=== PATIENT | female | born 2000 | race Caucasian/White ===

== ENCOUNTER 2025-01-04 21:57 | Emergency (ER) | payer BC, SELFPAY ==
[2025-01-04 21:58] VITALS: BP 131/72
--- NOTE | 2025-01-05 01:08 | ED.GENMED ---
History of Present Illness
General
Chief Complaint: Skin Problem
Source: patient
Exam Limitations: none
Time Seen by Provider: 01/05/25 01:07
Nursing documentation reviewed up to this point in time: agreed with
History of Present Illness
History of Present Illness:
Note:
CHIEF COMPLAINT(S)
Lip swelling and pain near lower lip piercing.
HISTORY OF PRESENT ILLNESS
The patient is a 24-year-old female who presents with swelling and pain associated with her lower lip piercing. She reported that a few days ago, the piercing site started to form something unusual, described as crusting. The piercing in question
was placed approximately six months ago and has been problematic over the past few days, with the main issue being that the ball of the piercing became unscrewed, causing the piercing to embed and the lip to swell. The patient mentioned needing to
push it out each morning due to it getting stuck under the skin. She denied fever or difficulty swallowing. The right side is particularly affected, with noted pain upon touch. The patient has been using a saline solution purchased from a shop to
clean the area. There were no changes made to the jewelry regularly and no reported drainage apart from possible over cleansing noted by the patient. She has an additional piercing on the left side of her vanda that patient is requesting to be removed
out of ear that it will become embedded like the previous site did.
PHYSICAL EXAM
General: Patient is well appearing and in no acute distress; non-toxic
Skin: Warm and dry, mild erythema on the skin below the right lower lip, on the inner mucosal surface there is noted to be presence of scar tissue and some crusting at the site with minimal purulent drainage. Mild mobility of the piercing jewelry;
however, the ball remained unscrewed.
Mouth: Dentition intact. No intra-oral lacerations; skin exam above.
Head: Normocephalic, atraumatic
Eyes: Sclera non-icteric. EOMs intact.
Cardiac: Regular rate and rhythm, no murmurs
Pulm: Normal respiratory effort, no wheezes, rales, or rhonchi
Neuro: CN II-XII intact, no focal neurologic deficits. Sensation intact.
Psychiatric: Appropriate mood and affect.
Nursing notes reviewed and vital signs reviewed.
DIFFERENTIAL DIAGNOSIS
The Differential Diagnosis includes, in no particular order and is not limited to:
1. Localized infection around the piercing site.
2. Foreign body reaction.
3. Contact dermatitis from metal or cleaning agents.
4. Keloid formation.
5. Allergic reaction.
6. Traumatic irritation.
7. Abscess formation.
8. Ludwigs angina.
9. Cellulitis.
10. Oral mucosal lesion.
MDM/DISPOSITION
24 y/o female presents to the ER today with concerns of her right lip piercing being stuck in place. She denies neck swelling, difficulty swallowing, fevers or chills.
PLAN
The plan involved removing the embedded lip piercing. Initially, attempts were made to manually unscrew the jewelry. Due to difficulty, a decision was made to numb the area using lidocaine to facilitate removal without causing further discomfort.
The space around the inner surface of the piercing was midly widened to allow for passage of the jewelry. Following removal, the patient was advised to commence an antibiotic regimen due to the potential infection risk in the oral cavity, given the
general bacterial mio. The patient was also offered an update on her tetanus vaccination, which she agreed to. Advice on proper cleaning and care to prevent future issues was provided. Strict return precautions and follow up with family doctor
discussed.
Review of Systems
Review of Systems
All Other Systems: ROS reviewed and negative except as documented in HPI and ROS
Phy Exam
Physical Exam
Physical Exam:
see hpi
Course
Orders/Labs/Results
Orders:
Orders
01/05/25 01:56
Amoxicillin 875 mg/Clav 125 mg [Augmentin 875 mg/125 mg] 1 tablet PO NOW STA
Tetanus/Diphth/Acelpertussis [Adacel] 0.5 ml IM .ONCE ONE
Vital Signs
Initial and Last Documented VS:
Initial Vital Signs
Temp Pulse Resp BP Pulse Ox
98.0 F 89 20 131/72 99
01/04/25 21:58 01/04/25 21:58 01/04/25 21:58 01/04/25 21:58 01/04/25 21:58
Last Documented Vital Signs
Temp Pulse Resp BP Pulse Ox
98.0 F 89 20 131/72 99
01/04/25 21:58 01/04/25 21:58 01/04/25 21:58 01/04/25 21:58 01/05/25 01:09
Procedures
Foreign Body Removal-Skin
Wound explored and foreign body removed?: Yes
Anesthesia: 1%lidocaine w/epinephrine
Foreign body removed using: irrigation, forceps and incision (forceps were used to manually widen the area in the inner mucosal surface to allow greater mobility of the embedded piercing)
Foreign body removed: completely
*Pulse Oximetry
SaO2: 99
Oxygen Mode of Delivery: Room air
Patient hypoxic: no
*Critical Care Note
Total Time (30-74mins, 75-104mins- exclusive of procedures): Not Applicable
ED Attending Note
-
Portions of this chart may have been created with voice recognition software.� Occasional wrong word or��sound alike� substitutions may have occurred due to the inherent limitations of voice recognition software.
Discharge Plan
Departure
Patient Disposition: Home (Routine Discharge)
Date of Disposition: 01/05/25
Time of Disposition: 02:12
Patient with high blood pressure during this ER visit?: Yes
Condition: Good
Discharge Problem:
Piercing in right third of lower lip, Infected pierced lip
Instructions: Wound Care (DC), Oral Piercings, BLOOD PRESSURE
Prescriptions:
New
amoxicillin-pot clavulanate 875-125 mg tablet
1 tab PO BID 7 Days Qty: 14 0RF
No Action
No Meds [No Current Medications]
0
Referrals:
Louisa Eastman MD [Family Provider, [facility]]
Activity Restrictions/Additional Instructions:
Please thoroughly rinse your piercing with saline multiple times a day.
Please follow-up with your primary care provider in 1 week to ensure that the area is healing.
Augmentin has been sent to your pharmacy. Please take 1 tablet twice daily for 7 days.
PLEASE RETURN EMERGENCY DEPARTMENT SHOULD YOU DEVELOP SPREADING OF THE REDNESS, FEVERS OR CHILLS, INCREASING PAIN, OR ANY OTHER SIGNS OR SYMPTOMS WORRISOME TO YOU.
Interventions
Interventions:
*Risk Screen - Suicide Last Done: 01/05/25 00:55
*General Assessment Last Done: 01/04/25 21:58
*Neglect/Abuse Screening Last Done: 01/05/25 00:55
*ED- Fall Risk Assessment Last Done: 01/05/25 00:55
*ED COVID-19 Vaccine History Last Done: 01/05/25 00:55
*Nursing Disposition Last Done: 01/05/25 02:48
ED-Skin Assessment Last Done: 01/05/25 01:00
Discharge Date and Time
Discharge Date/Time: 01/05/25 02:49
Print Language: SWEDISH
[2025-01-05] MEDS: ADACEL 0.5 ML IM (02:17)
[2025-01-05] MEDS: AUGMENTIN 875 MG/125 MG 1 TABLET PO (02:17)
== END 2025-01-05 02:49 | disposition home or self-care (01) ==
LOC: EMR 21:57
PROVIDERS: EMERGENCY PHYSICIAN Emergency Medicine; FAMILY PHYSICIAN Family Medicine
DX: R22.0 Localized swelling, mass and lump, head (principal); B99.8 Other infectious disease; M79.5 Residual foreign body in soft tissue; L53.9 Erythematous condition, unspecified; Z23 Encounter for immunization; R03.0 Elevated blood-pressure reading, without diagnosis of hypertension
CPT/HCPCS: 10120; 99283; 90471; 90715